=== PATIENT | male | born 1950 | race Caucasian/White ===

== ENCOUNTER → 2017-04-12 | Outpatient (CLI) | payer OTHER | END | disposition home or self-care (01) | LOC: RAD 11:44 | DX: N20.0 Calculus of kidney (principal) ==

== ENCOUNTER → 2017-05-14 15:00 | Outpatient (CLI) | payer OTHER | END | disposition home or self-care (01) | LOC: LAB 15:00 | DX: H47.012 Ischemic optic neuropathy, left eye (principal) ==

== ENCOUNTER → 2017-05-15 | Outpatient (CLI) | payer OTHER | END | disposition home or self-care (01) | LOC: MRI 08:15 | DX: H47.012 Ischemic optic neuropathy, left eye (principal) | CPT/HCPCS: 70540; 70551 ==

== ENCOUNTER → 2017-05-15 | Outpatient (CLI) | payer OTHER | END | disposition home or self-care (01) | LOC: SONOGRAMA 12:37 | DX: N20.0 Calculus of kidney (principal) ==

== ENCOUNTER → 2017-05-24 09:31 | Outpatient (CLI) | payer OTHER | END | disposition home or self-care (01) | LOC: LAB 09:31 | DX: N18.2 Chronic kidney disease, stage 2 (mild) (principal); I10 Essential (primary) hypertension ==

== ENCOUNTER → 2017-05-24 | Outpatient (CLI) | payer OTHER | END | disposition home or self-care (01) | LOC: NUCLEAR 10:43 | DX: I63.9 Cerebral infarction, unspecified (principal); I65.21 Occlusion and stenosis of right carotid artery ==

== ENCOUNTER → 2017-11-12 16:31 | Outpatient (CLI) | payer OTHER | END | disposition home or self-care (01) | LOC: RAD 16:31 | DX: N20.0 Calculus of kidney (principal) ==

== ENCOUNTER → 2018-11-04 | Outpatient (CLI) | payer OTHER | END | disposition home or self-care (01) | LOC: RAD 15:10 | DX: I10 Essential (primary) hypertension (principal); G45.8 Other transient cerebral ischemic attacks and related syndromes ==

== ENCOUNTER 2019-09-08 09:43 | Outpatient (CLI) | payer OTHER | END 2019-09-08 14:50 | disposition home or self-care (01) | LOC: RAD 09:43 → LAB 09:43 | DX: N20.0 Calculus of kidney (principal); M54.2 Cervicalgia; M06.4 Inflammatory polyarthropathy; Z13.29 Encounter for screening for other suspected endocrine disorder; Z12.11 Encounter for screening for malignant neoplasm of colon; N40.0 Benign prostatic hyperplasia without lower urinary tract symptoms; G45.8 Other transient cerebral ischemic attacks and related syndromes; E78.49 Other hyperlipidemia; I11.9 Hypertensive heart disease without heart failure ==

== ENCOUNTER 2019-09-10 10:45 | Outpatient (CLI) | payer OTHER | END 2019-09-10 10:51 | disposition home or self-care (01) | LOC: LAB 10:45 | DX: N20.0 Calculus of kidney (principal); M54.2 Cervicalgia; M06.4 Inflammatory polyarthropathy; Z13.29 Encounter for screening for other suspected endocrine disorder; Z12.11 Encounter for screening for malignant neoplasm of colon; N40.0 Benign prostatic hyperplasia without lower urinary tract symptoms; G45.8 Other transient cerebral ischemic attacks and related syndromes; E78.49 Other hyperlipidemia; I11.9 Hypertensive heart disease without heart failure ==

== ENCOUNTER 2020-02-27 10:34 | Emergency (ER) | payer OTHER ==
[~2020-02-27] VITALS: Ht 170.2 cm; Wt 74.8 kg
[2020-02-27] MEDS ORDERED: PLAVIX75 MG (10:52)
[2020-02-27] MEDS ORDERED: CHILDREN'S ASPI81 MG (10:52)
[2020-02-27] MEDS ORDERED: SIMVASTATIN5 MG (10:55)
[2020-02-27] MEDS ORDERED: COZAAR100 MG (10:55)
== END 2020-02-27 12:51 | disposition home or self-care (01) ==
LOC: ER 10:34
DX: M54.5 Low back pain (principal); N20.0 Calculus of kidney

== ENCOUNTER 2020-10-06 13:30 | Outpatient (CLI) | payer OTHER ==
[~2020-10-06 13:30] MED LIST: CHILDREN'S ASPI81 MG; COZAAR100 MG; PLAVIX75 MG; SIMVASTATIN5 MG
== END 2020-10-06 14:15 | disposition home or self-care (01) ==
LOC: RAD 13:30
DX: T82.120D Displacement of cardiac electrode, subsequent encounter (principal); I49.5 Sick sinus syndrome

== ENCOUNTER 2021-07-11 10:16 | Outpatient (CLI) | payer OTHER | END 2021-07-11 14:08 | disposition home or self-care (01) | LOC: LAB 10:16 | PROVIDERS: ATTEND General Practice | DX: E07.89 Other specified disorders of thyroid (principal); R19.5 Other fecal abnormalities; N18.2 Chronic kidney disease, stage 2 (mild); E55.9 Vitamin D deficiency, unspecified; R94.6 Abnormal results of thyroid function studies ==

== ENCOUNTER 2021-07-14 10:35 | Outpatient (CLI) | payer OTHER | END 2021-07-14 10:43 | disposition home or self-care (01) | LOC: SONOGRAMA 10:35 | PROVIDERS: ATTEND General Practice | DX: R93.49 Abnormal radiologic findings on diagnostic imaging of other urinary organs (principal); R19.5 Other fecal abnormalities; R94.6 Abnormal results of thyroid function studies; N18.2 Chronic kidney disease, stage 2 (mild) ==

== ENCOUNTER 2024-03-17 22:13 | Inpatient (IN) | payer OTHER ==
[~2024-03-17] VITALS: Ht 172.7 cm; Wt 68.0 kg
[2024-03-17] MEDS ORDERED: XARELTO10 MG (22:18)
[2024-03-17] MEDS ORDERED: ATORVASTATIN CA10 MG (22:18)
--- NOTE | 2024-03-17 22:30 | NUR ---
SE RECIBE PTE ALERTA Y ORIENTADO X3, EN SILLA DE RUIDAS EN COMPAINA DE HIJA QUIEN REFIERE PTE ESTA "RARO" TEMBLOROSO E HIPOACTIVO. AL MOMENTO DE SARA DE VITALES PTE PRESENTA PULSO EN 131 LAT/MIN, 105.2 DE TEMP Y SAT 91%. SE REALIZA EKG Y SE PRESENTA A . SE UBICA PTE EN CRITICO #2 SE CONECTA A MONITOR CARDIACO Y OXIMETRIA DE PULSO CONTINUA.
--- NOTE | 2024-03-17 22:53 | NUR ---
SE RECIBE PTE MASCULINO ALERTA Y ORIENTADO X3 DEL AREA DE TRIAGE; SE CONECTA A MONITOR CARDIACO Y OXIMETRIA DE PULSO CONTINUA. PTE ES EVALUADO POR . SE ORIENTA SOBRE ORDENES DE TX REFIERE COMPRENDER. SE COLECTAN MUESTRAS DE LABORATORIOS Y SE CANALIZA VENA BAJO MEDIDAS ASEPTICAS. SE ADMINISTRAN LIQUIDOS INTRAVENSOSO. SE NOTIFICA A RADIOLOGIA PARA XRAY PENDIENTE. SE NOTIFICAN ABGS A .
[2024-03-17] MEDS ORDERED: 0.9 % SODIUM CHLORIDE 1,000 ML IV SCH (23:00)
--- NOTE | 2024-03-17 23:00 | NUR ---
11:00PM SE RECIBE PTE ALERTA Y ORIENTADO X3 EN CAMA BAJA CON BARANDAS ELEVADAS. PTE CONECTADO A MONITOR CARDIACO Y SATUROMETRO. CANALIZADO EN MANO DERECHA CON ANGIO #18 PATENTE ABHI DE EDEMA Y ENROJECIMIENTO. RECIBIENDO .9NSS BAJANDO A 80MLS/HR. PTE CON TEMPERATURA 102.[address] GARCÍA. SE LE COLOCA BOLSITA DE HIELO Y SE ADMINISTRA ACETAMINOPHEN 1,000MG PO CARLA ORDEN MEDICA. SE COLCOA CANULA A 2LT CARLA ORDEN MEDICA DEL DR. GARCÍA. SE MANTIENE EN OBSERVACION POR TRATAMIENTO.
[2024-03-17 23:17] LABS: HEMATOCRIT 40.8 % (39.0-48.0); HEMOGLOBIN 14.1 g/dL (13-16.00); MEAN CELL VOLUME 88.5 fL (80.0-100.00); MEAN CORPUSCULAR HEMOGLOBIN 30.5 pg (27.00-32.0); MEAN CORPUSCULAR HGB CONC 34.5 g/dl (32.0-36.0); RED BLOOD COUNT 4.61 M/uL (4.00-6.00); RED CELL DISTRIBUTION WIDTH 14.9 % (11.5-14.5)
[2024-03-17 23:18] LABS: PLATELET COUNT 103 K/uL (150-450)
[2024-03-17] MEDS ORDERED: ACETAMINOPHEN 500 MG GEL..CAP PO ONE ×2 (23:30→23:33)
[2024-03-17 23:31] LABS: ALBUMIN 3.3 gm/dL (3.4-5.0); BILIRUBIN TOTAL 1.22 mg/dL (0.3-1.2); CALCIUM 8.1 mg/dL (8.5-10.1); CREATININE SERUM 1.61 mg/dL (0.70-1.30); GFR 42.28; GLOBULINA 2.9 G/DL (2.4-3.5); POTASSIUM 3.9 mEq/L (3.5-5.1); TOTAL PROTEIN 6.2 gm/dL (6.4-8.2)
[2024-03-18] MEDS ORDERED: CEFTRIAXONE SODIUM 1,000 MG VIAL IV STA (01:41)
[2024-03-18] MEDS ORDERED: CEFTRIAXONE SODIUM 1,000 MG VIAL ONE (01:55)
--- NOTE | 2024-03-18 02:24 | NUR ---
SE TRANSFIERE PTE PARA AREA DE OBSERVACION POR ORDEN DEL DR. RIOS. SE COLCOA EN K7 Y SE LE ENTREGA PTE A MISTY MCCARTNEY.
[2024-03-18 02:30] LABS: PH,URINE 5.5 (5.0-8.0); URINE APPEARANCE Cloudy; URINE BILIRRUBIN Negative (NEGATIVE); URINE BLOOD Large; URINE COLOR Dark Yellow; URINE GLUCOSE Negative (NEGATIVE); URINE KETONE Trace (NEGATIVE); URINE LEUKOCYTE Trace
[2024-03-18 02:34] LABS: URINE BACTERIA 12.2 uL (0.0-1933); URINE CAST 4.86 uL (0.0-1.40); URINE EPITHELIAL CELLS 22.9 uL (0.0-38.8); URINE RBC 32.4 uL (0.0-20.8); URINE WBC 3.3 uL (0.0-23.2)
[2024-03-18 02:56] LABS: URINE PROTEIN 100 (NEGATIVE)
--- NOTE | 2024-03-18 04:34 | NUR ---
SE COLECTAN MUESTRAS DE LAB POR ORDEN DE ENMANUEL METODO DE RE EVALUACION PARA DIAGNOSTICO Y CAMBIOS EN EL TX MEDICO. MUESTRAS FUERON TOMADAS POR MISTY CARBAJAL
[2024-03-18 04:53] LABS: HEMATOCRIT 38.7 % (39.0-48.0); HEMOGLOBIN 13.1 g/dL (13-16.00); MEAN CELL VOLUME 89.7 fL (80.0-100.00); MEAN CORPUSCULAR HEMOGLOBIN 30.4 pg (27.00-32.0); MEAN CORPUSCULAR HGB CONC 33.9 g/dl (32.0-36.0); RED BLOOD COUNT 4.31 M/uL (4.00-6.00)
[2024-03-18 05:04] LABS: PLATELET COUNT 114 K/uL (150-450)
[2024-03-18 05:14] LABS: ALBUMIN 2.7 gm/dL (3.4-5.0); BILIRUBIN TOTAL 0.88 mg/dL (0.3-1.2); CALCIUM 7.8 mg/dL (8.5-10.1); CREATININE SERUM 1.58 mg/dL (0.70-1.30); GFR 43.2; GLOBULINA 3.4 G/DL (2.4-3.5); POTASSIUM 4.07 mEq/L (3.5-5.1); TOTAL PROTEIN 6.1 gm/dL (6.4-8.2)
--- NOTE | 2024-03-18 07:00 | NUR ---
SE RECIBE MASCULINO ALERTA Y ORIENTADO X3 EN CAMA CON BARANDAS ELEVADAS POR [place] SEGURIDAD Y HERNANDEZ DE ID. VENOPUNCION PATENTE ABHI DE EDEMA Y ERITEMA BAJANDO IV FLUIDS POR REGULADR. PTE PENDIENTE A CONSULTA CON MEDICINA INTERNA.
[2024-03-18] MEDS ORDERED: ONDANSETRON HCL 4 MG in 0.9 % SODIUM CHLORIDE 50 ML IV PRN (19:15)
[2024-03-18] MEDS ORDERED: ACETAMINOPHEN 325 MG TABLET PO PRN (19:15)
[2024-03-18] MEDS ORDERED: hydrALAZINE HCL 20 MG VIAL IV PRN (19:30)
[2024-03-18 21:43] VITALS: BP 154/73
[2024-03-18] MEDS ORDERED: ENALAPRILAT DIHYDRATE 1.25 MG/ML VIAL IV ONE (21:45)
[2024-03-18 22:15] VITALS: BP 138/75; O2SAT 96
[2024-03-19 01:41] VITALS: BP 135/61; O2SAT 98
[2024-03-19 06:49] LABS: HEMOGLOBIN 12.5 g/dL (13-16.00); MEAN CELL VOLUME 89.7 fL (80.0-100.00); MEAN CORPUSCULAR HEMOGLOBIN 30.4 pg (27.00-32.0); MEAN CORPUSCULAR HGB CONC 33.9 g/dl (32.0-36.0); RED BLOOD COUNT 4.12 M/uL (4.00-6.00); RED CELL DISTRIBUTION WIDTH 14.8 % (11.5-14.5)
[2024-03-19 06:56] LABS: PLATELET COUNT 85 K/uL (150-450)
[2024-03-19 07:02] LABS: INR 1.1; PARTIAL THROMBOPLASTIN TIME 34.5 SECONDS (22.0-34.0); PROTHROMBIN TIME 11.9 SECONDS (9.0-11.5)
[2024-03-19 07:05] LABS: PLT IN CITRATE 79 K/uL (150-450)
[2024-03-19 07:42] LABS: ALBUMIN 2.5 gm/dL (3.4-5.0); BILIRUBIN TOTAL 1.06 mg/dL (0.3-1.2); CALCIUM 7.6 mg/dL (8.5-10.1); CREATININE SERUM 1.32 mg/dL (0.70-1.30); GFR 53.17; GLOBULINA 2.7 G/DL (2.4-3.5); POTASSIUM 3.38 mEq/L (3.5-5.1); TOTAL PROTEIN 5.2 gm/dL (6.4-8.2)
[2024-03-19 07:43] LABS: C-REACTIVE PROTEIN 14.2 MG/DL (0.00-0.29)
[2024-03-19] MEDS ORDERED: LOSARTAN POTASSIUM 100 MG TABLET PO SCH (09:00)
[2024-03-19] MEDS ORDERED: PANTOPRAZOLE SODIUM 40 MG/VIAL VIAL IV SCH (09:00)
[2024-03-19 09:01] VITALS: BP 120/69; O2SAT 96
[2024-03-19] MEDS ORDERED: ENOXAPARIN SODIUM 40 MG/0.4 ML SYRINGE SUBCUTANEO SCH (09:14)
[2024-03-19] MEDS ORDERED: VANCOMYCIN HCL 1,000 MG VIAL IV STA (09:24)
[2024-03-19] MEDS ORDERED: ACETAMINOPHEN 500 MG GEL..CAP PO PRN (09:30)
[2024-03-19] MEDS ORDERED: hydrALAZINE HCL 20 MG VIAL IV PRN (09:39)
[2024-03-19] MEDS ORDERED: POLYETHYLENE GLYCOL 3350 17 GM BLIST.PACK PO SCH (09:43)
[2024-03-19] MEDS ORDERED: PIPERACILLIN/TAZOBACTAM SODIUM 3.375 GM VIAL IV ONE (11:32)
[2024-03-19] MEDS ORDERED: PIPERACILLIN/TAZOBACTAM SODIUM 3.375 GM in 0.9 % SODIUM CHLORIDE 100 ML IV SCH ×2 (12:00)
[2024-03-19] MEDS ORDERED: TAMSULOSIN HCL 0.4 MG CAP PO SCH (12:00)
[2024-03-19] MEDS ORDERED: CEFTRIAXONE SODIUM 2,000 MG in 0.9 % SODIUM CHLORIDE 100 ML IV SCH (17:00)
[2024-03-19 17:31] VITALS: BP 105/63; O2SAT 96
[2024-03-19] MEDS ORDERED: VANCOMYCIN HCL 5 MG/ML REDILUIDO IV SCH (21:00)
[2024-03-20 00:05] VITALS: BP 147/77; O2SAT 95
[2024-03-20 05:45] LABS: CALCIUM 7.8 mg/dL (8.5-10.1); CREATININE SERUM 1.16 mg/dL (0.70-1.30); GFR 61.71; POTASSIUM 3.81 mEq/L (3.5-5.1)
[2024-03-20 06:16] LABS: HEMOGLOBIN 12.5 g/dL (13-16.00); MEAN CELL VOLUME 88.2 fL (80.0-100.00); MEAN CORPUSCULAR HEMOGLOBIN 30.6 pg (27.00-32.0); MEAN CORPUSCULAR HGB CONC 34.6 g/dl (32.0-36.0); RED BLOOD COUNT 4.08 M/uL (4.00-6.00); RED CELL DISTRIBUTION WIDTH 14.8 % (11.5-14.5)
[2024-03-20 06:19] LABS: PLATELET COUNT 99 K/uL (150-450)
[2024-03-20 07:39] VITALS: BP 144/72; O2SAT 97
[2024-03-20] MEDS ORDERED: AMLODIPINE BESYLATE 10 MG TABLET PO SCH (09:00)
[2024-03-20] MEDS ORDERED: RIVAROXABAN 20 MG TABLET PO SCH (09:00)
[2024-03-20] MEDS ORDERED: VANCOMYCIN HCL 5 MG/ML REDILUIDO IV SCH (09:00)
[2024-03-20] MEDS ORDERED: PANTOPRAZOLE SODIUM 40 MG TABLET.DR PO SCH (09:00)
[2024-03-20 16:10] VITALS: BP 134/74; O2SAT 94
[2024-03-20 20:02] VITALS: BP 124/72; O2SAT 97
[2024-03-21 00:43] VITALS: BP 151/78; O2SAT 97
[2024-03-21 08:20] VITALS: BP 162/85; O2SAT 96
[2024-03-21 16:00] VITALS: BP 114/69; O2SAT 92
[2024-03-22 00:06] VITALS: BP 162/83; O2SAT 95
[2024-03-22 07:47] LABS: HEMATOCRIT 35.7 % (39.0-48.0); HEMOGLOBIN 12.1 g/dL (13-16.00); MEAN CELL VOLUME 88.6 fL (80.0-100.00); MEAN CORPUSCULAR HGB CONC 33.9 g/dl (32.0-36.0); PLATELET COUNT 158 K/uL (150-450); RED BLOOD COUNT 4.03 M/uL (4.00-6.00); RED CELL DISTRIBUTION WIDTH 14.6 % (11.5-14.5)
[2024-03-22 08:22] LABS: CREATININE SERUM 1.17 mg/dL (0.70-1.30); GFR 61.11; POTASSIUM 3.9 mEq/L (3.5-5.1)
[2024-03-22 09:30] VITALS: BP 154/82; O2SAT 94
[2024-03-22 15:45] VITALS: BP 139/69; O2SAT 94
[2024-03-23 00:34] VITALS: BP 150/82; O2SAT 95
[2024-03-24 06:14] LABS: HEMATOCRIT 38.4 % (39.0-48.0); MEAN CELL VOLUME 89.1 fL (80.0-100.00); MEAN CORPUSCULAR HEMOGLOBIN 30.3 pg (27.00-32.0); PLATELET COUNT 269 K/uL (150-450); RED BLOOD COUNT 4.31 M/uL (4.00-6.00); RED CELL DISTRIBUTION WIDTH 14.8 % (11.5-14.5)
[2024-03-24 06:49] LABS: CREATININE SERUM 1.22 mg/dL (0.70-1.30); GFR 58.23; POTASSIUM 4.25 mEq/L (3.5-5.1)
[2024-03-24 16:40] VITALS: BP 123/70; O2SAT 96
[2024-03-24 23:45] VITALS: BP 134/74; O2SAT 95
[2024-03-25 08:00] VITALS: BP 127/72; O2SAT 97
== END 2024-03-25 11:48 | disposition home or self-care (01) | DRG 866 ==
LOC: ER 22:16 → MEDI 03-18 19:30
PROVIDERS: Emergency Medicine; General Practice; ADMIT Student in an Organized Health Care Education/Training Program; ATTEND Student in an Organized Health Care Education/Training Program
PROC: B24BYZZ Ultrasonography of Heart with Aorta using Other Contrast (ICD-10-PCS; principal; 2024-03-19)
PROC: B24BZZ4 Ultrasonography of Heart with Aorta, Transesophageal (ICD-10-PCS; 2024-03-23)
DX: A90 Dengue fever [classical dengue] (principal); D69.6 Thrombocytopenia, unspecified; I10 Essential (primary) hypertension; E11.9 Type 2 diabetes mellitus without complications; Z79.4 Long term (current) use of insulin